=== PATIENT | female | born 1965 | race Caucasian/White ===

== ENCOUNTER 2020-12-31 08:43 | Day surgery (SDC) | payer OTHER ==
[~2020-12-31] VITALS: Ht 172.7 cm; Wt 97.1 kg
[2020-12-31] MEDS ORDERED: fentaNYL citrate 0.05 MG/ML VIAL ONE (10:11)
[2020-12-31] MEDS ORDERED: MIDAZOLAM 5 MG/5 ML VIAL ONE (10:11)
[2020-12-31] MEDS ORDERED: MIDAZOLAM 2 MG/2 ML VIAL IVP ONE (11:30)
== END 2020-12-31 11:35 | disposition home or self-care (01) ==
LOC: MDS 08:43 → MMU 08:44 → MDS 11:35
PROVIDERS: ATTEND Internal Medicine Gastroenterology
DX: R10.13 Epigastric pain (principal); K29.70 Gastritis, unspecified, without bleeding; K76.0 Fatty (change of) liver, not elsewhere classified; I10 Essential (primary) hypertension; E11.9 Type 2 diabetes mellitus without complications; E78.5 Hyperlipidemia, unspecified; J45.909 Unspecified asthma, uncomplicated; E66.9 Obesity, unspecified; Z88.1 Allergy status to other antibiotic agents; Z79.84 Long term (current) use of oral hypoglycemic drugs; Z68.32 Body mass index [BMI] 32.0-32.9, adult; Z79.899 Other long term (current) drug therapy
CPT/HCPCS: 36415; 43239; 86677; J2250; J3010

== ENCOUNTER 2023-09-14 07:15 | Day surgery (SDC) | payer OTHER ==
[~2023-09-14] VITALS: Ht 172.7 cm; Wt 102.1 kg
[2023-09-14] MEDS ORDERED: fentaNYL citrate 0.05 MG/ML VIAL ONE (08:53)
[2023-09-14] MEDS ORDERED: MIDAZOLAM 2 MG/2 ML VIAL ONE (08:54)
[2023-09-14] MEDS: MIDAZOLAM 2 MG/2 ML VIAL IVP ONE (08:57)
[2023-09-14] MEDS: fentaNYL citrate 0.05 MG/ML VIAL IVP ONE (08:58)
[2023-09-14] MEDS: LIDOCAINE 2% 100 MG/5 ML UJET TP ONE (09:10)
== END 2023-09-14 10:38 | disposition home or self-care (01) ==
LOC: MOR 07:15 → MMU 07:44 → MOR 10:38
PROVIDERS: ATTEND Internal Medicine Gastroenterology
DX: R10.30 Lower abdominal pain, unspecified (principal); R12 Heartburn; K21.9 Gastro-esophageal reflux disease without esophagitis; K57.30 Diverticulosis of large intestine without perforation or abscess without bleeding; K29.70 Gastritis, unspecified, without bleeding; I10 Essential (primary) hypertension; E11.40 Type 2 diabetes mellitus with diabetic neuropathy, unspecified; Z98.61 Coronary angioplasty status; Z88.1 Allergy status to other antibiotic agents; Z98.890 Other specified postprocedural states
CPT/HCPCS: 36415; 43239; 45378; 86677; J2250; J3010